=== PATIENT | female | born 1950 | race Two or more races ===

== ENCOUNTER 2018-03-28 09:59 | Emergency (ER) | payer MEDICARE, OTHER ==
[~2018-03-28] VITALS: Ht 149.9 cm; Wt 49.0 kg
[2018-03-28 10:14] VITALS: BP 168/79
--- NOTE | 2018-03-28 12:22 | Emergency Room Report ---
History of Present Illness General Chief Complaint: Pain Source: Patient Present Illness HPI This patient states that 3 days ago she slipped and braced herself with her right arm. She did not actually fall. She states that since that time she has had pain in the front part of her right shoulder. She has pain with movement. She has no other injuries or complaints. Allergies: Coded Allergies: No Known Allergies (Unverified , 03/28/18) Patient History Past Medical History: none, DM, HTN Social History: Denies: smoking, alcohol use, drug use Now: No Reviewed Nursing Documentation: PMH: Agreed; PSxH: Agreed Nursing Documentation-PMH Hx Hypertension: Yes - osteoporosis Hx Diabetes: Yes Review of Systems All Other Systems: negative except mentioned in HPI Physical Exam Vital Signs Date Time Temp Pulse Resp B/P (MAP) Pulse Ox O2 Delivery O2 Flow Rate FiO2 03/28/18 10:04 98.0 6 18 168/79 98 98.1 Sp02 EP Interpretation: reviewed, normal General Appearance: no apparent distress, alert, GCS 15, non-toxic Head: normocephalic, atraumatic Eyes: bilateral eye normal inspection, bilateral eye PERRL ENT: hearing grossly normal, normal pharynx, no angioedema, normal voice Neck: full range of motion, supple/symm/no masses Respiratory: chest non-tender, lungs clear, normal breath sounds, no respiratory distress, no retraction, no accessory muscle use, speaking full sentences Cardiovascular #1: regular rate, rhythm, no edema Gastrointestinal: normal bowel sounds, non tender, soft, non-distended, no guarding, no rebound Rectal: deferred Musculoskeletal: back normal, gait/station normal, other - R. shoulder pain with adduction and difficulty rasing arm over shoulder. TTP anterior shoulder. No deformity. TTP along the R.trapezius m. Neurologic: alert, oriented x3, responsive, motor strength/tone normal, sensory intact, speech normal Psychiatric: judgement/insight normal, memory normal, mood/affect normal, no suicidal/homicidal ideation Skin: normal color, no rash, warm/dry, well hydrated Medical Decision Making Diagnostic Impression: Primary Impression: Rotator cuff injury Additional Impression: Trapezius muscle spasm ER Course This patient has a physical exam findings consistent with rotator cuff injury. She may have a complete tear. The patient was unable to adduct fully. She was limited by pain. She is also tender to palpation along the right trapezius muscle. X-ray of the right shoulder shows no fracture. I educated the patient that she should follow-up with an land conservation specialist. I will also give the patient anti-inflammatories and muscle relaxants for symptomatic treatment. Other X-Ray Diagnostic Results Other X-Ray Diagnostic Results : X-Ray ordered: R.Shoulder # of Views/Limited Vs Complete: Complete Indication: Pain Interpretation: no dislocation, no soft tissue swelling, no fractures, nonspecific bowel gas Impression: No acute disease Electronically Signed by: Charisma Last Vital Signs Date Time Temp Pulse Resp B/P (MAP) Pulse Ox O2 Delivery O2 Flow Rate FiO2 03/28/18 10:14 98.1 18 168/79 98 98.1 03/28/18 10:04 6 Disposition: HOME, SELF-CARE Condition: Improved Referrals: NOT CHOSEN JULIUS/,REFERRING (PCP) Melina Chu DO Mar 28, 2018 12:22
[2018-03-28] MEDS ORDERED: IBUPROFEN600 MG ORAL (12:23)
[2018-03-28] MEDS ORDERED: CYCLOBENZAPRINE10 MG ORAL (12:23)
[2018-03-28 12:43] VITALS: BP 147/76
--- NOTE | 2018-03-28 13:22 | Diagnostic Imaging Report ---
Indication: Shoulder pain Technique: 3 views of the right shoulder Comparison: none Findings: No acute fractures. No dislocations. The joint spaces are preserved. There is a large olecranon spur. The bones are demineralized Impression: No acute process
== END 2018-03-28 12:47 | disposition home or self-care (01) ==
LOC: EDBD 09:59 → EMR 10:35
DX: S46.001A Unspecified injury of muscle(s) and tendon(s) of the rotator cuff of right shoulder, initial encounter (principal); M62.838 Other muscle spasm; E11.9 Type 2 diabetes mellitus without complications; I10 Essential (primary) hypertension; M81.0 Age-related osteoporosis without current pathological fracture; W18.40XA Slipping, tripping and stumbling without falling, unspecified, initial encounter; Y92.9 Unspecified place or not applicable
CPT/HCPCS: 99283